=== PATIENT | male | born 1950 | race Caucasian/White ===

== ENCOUNTER 2024-01-13 07:00 | Outpatient (CLI) | payer MEDICARE ==
--- NOTE | 2024-01-13 14:49 | XRAY Report ---
PROCEDURE: AC Joints INDICATIONS: SPRAIN OF RIGHT ACROMIOCLAVICULAR JOINT TECHNIQUE: 2 views each of both acromioclavicular joints were acquired. COMPARISON: None FINDINGS: Bones: No fractures or dislocations. Weightbearing views demonstrate normal acromioclavicular joint alignment as well. No suspicious bony lesions. Superior ribs appear normal. Soft tissues: No suspicious soft tissue calcifications. IMPRESSION: No evidence of clavicle fracture. No AC joint separation identified. Reviewed by: Juma Dominique MD on 01/13/2024 2:47 PM PDT Approved by: Juma Dominique MD on 01/13/2024 2:47 PM PDT Station ID: [id number]
--- NOTE | 2024-01-14 08:38 | XRAY Report ---
PROCEDURE: Shoulder 2+V RT INDICATIONS: CONTUSION OF RIGHT SHOULDER TECHNIQUE: 3 views of the shoulder were acquired. COMPARISON: X-ray AC joint, 01/13/2024. FINDINGS: Bones: Question greater tuberosity fracture of uncertain chronicity. Mild osteoarthritic changes in acromioclavicular and glenohumeral joint. No dislocations. No suspicious bony lesions. Visualized r ibs appear intact. Soft tissues: No suspicious soft tissue calcifications. The visualized lungs are within normal limi ts. IMPRESSION: 1. ? greater tuberosity fracture of uncertain chronicity. 2. Mild osteoarthritis. Reviewed by: Rah Hall MD on 01/14/2024 8:37 AM PDT Approved by: Rah Hall MD on 01/14/2024 8:37 AM PDT Station ID: [id number]
== END 2024-01-13 23:59 | disposition home or self-care (01) ==
LOC: DI.S 07:00
PROVIDERS: ATTEND Emergency Medicine
DX: S40.011A Contusion of right shoulder, initial encounter (principal); M19.011 Primary osteoarthritis, right shoulder; S43.51XA Sprain of right acromioclavicular joint, initial encounter

== ENCOUNTER 2024-01-16 11:00 | Outpatient (CLI) | payer MEDICARE ==
--- NOTE | 2024-01-16 15:54 | XRAY Report ---
PROCEDURE: Humerus RT INDICATIONS: ABNORMAL BONE RADIOGRAPH TECHNIQUE: 2 views of the humerus were acquired. COMPARISON: Shoulder radiographs performed the same day FINDINGS: Bones: There is a lucency again noted along the inferior aspect of the greater tuberosity without a visible overlying cortical defect on the 2 given views. No displaced fractures are identified. Glenoh umeral joint remains normally aligned. Distal humerus is unremarkable. No suspicious bony lesions. Soft tissues: No suspicious soft tissue calcifications or masses. IMPRESSION: Lucency involving the greater tuberosity is again seen and a nondisplaced fracture cannot be excluded . Correlate with point tenderness and consider advanced imaging if no improvement with conservative m anagement. Reviewed by: Yael Cheney MD on 01/16/2024 3:53 PM PDT Approved by: Yael Cheney MD on 01/16/2024 3:53 PM PDT Station ID: [id number]
== END 2024-01-16 11:01 | disposition home or self-care (01) ==
LOC: LAB.S 11:00 → DI.S 11:01
PROVIDERS: ATTEND Registered Nurse
DX: R93.7 Abnormal findings on diagnostic imaging of other parts of musculoskeletal system (principal)